=== PATIENT | female | born 1950 | race Caucasian/White ===

== ENCOUNTER 2018-04-26 13:15 | Inpatient (IN) | payer MEDICARE ==
[2018-04-26 13:33] LABS: #Basophils 0.2 thou/uL (0.0-0.2); #Lymphocytes 0.8 thou/uL (1.20-3.40); #Monocytes 0.6 thou/uL (0.11-0.59); #Neutrophils 10.9 thou/uL (1.40-6.50); %Basophils 1.2 % (0.0-1.0); %Eosinophils 0.2 % (0.0-10.0); %Monocytes 4.8 % (0.0-10.0); %Neutrophils 87.7 % (42.0-75.0); Hemoglobin 13.5 g/dL (12.0-16.0); Mean Corpuscular HGB CONC 32.4 g/dL (32.0-36.0); Mean Corpuscular Hemoglobin 33.6 pg (27.0-31.0); Mean Platelet Volume 9.2 fL (7.4-10.4); Platelet Count 293 thou/uL (130-400); RBC Distribution Width 12.7 % (11.5-14.5); Red Blood Cell (RBC) Count 4.02 mill/uL (4.20-5.40); White Blood Cell (WBC) Count 12.4 thou/uL (4.8-10.8)
[2018-04-26 13:53] LABS: ALT (SGPT) 13 U/L (8-55); AST (SGOT) 21 U/L (5-34); Albumin 3.2 g/dL (3.4-4.8); Alkaline Phosphatase 93 U/L (40-150); Anion Gap 23 mmol/L (10-20); BUN (Urea Nitrogen) 21 mg/dL (9.8-20.1); Bilirubin, Total 1.3 mg/dL (0.2-1.2); CK (CPK) 240 U/L (29-168); Calc. Creatinine Clearance 0 mL/min (70-130); Calcium 10.1 mg/dL (7.8-10.44); Carbon Dioxide 19 mmol/L (23-31); Chloride 102 mmol/L (98-107); Estimated GFR-MDRD 70; Globulin 2.6 g/dL (2.4-3.5); Glucose 125 mg/dL (80-115); Lipase 17 U/L (8-78); Potassium 4.7 mmol/L (3.5-5.1); Protein, Total 5.8 g/dL (6.0-8.3); Sodium 139 mmol/L (136-145)
--- NOTE | 2018-04-26 14:00 | CT ---
CT BRAIN NONCONTRAST: DATE: 04/26/2018. TIME: 1:31 p.m. HISTORY: A 68-year-old female with altered mental status, right upper extremity and right lower extremity weak ness, fixed gaze, and right facial droop (acute stroke). Dr. Mendieta verbally gave this report by telephone to Dr. Lawler of the emergency department at 1:34 p.m. 04/26/2018. COMPARISON: 04/18/2013. FINDINGS: There is a new finding of a moderately large region of cytotoxic edema with associated effacement of sulcal markings, involving the left insula, external capsule, and suprasylvian left frontal lobe, fro m periventricular white matter to the lateral peripheral cortical surface. Currently, there is no mi dline shift. No obstructive hydrocephalus. No acute intraaxial or extraaxial hemorrhage. IMPRESSION: Acute moderately large infarction in the left middle cerebral artery territory. CODE CR JN R POS: [facility]
[2018-04-26 14:12] LABS: CKMB 3.9 ng/mL (0-6.6)
[2018-04-26 14:16] LABS: Bilirubin Large (Negative); Blood, Urine Negative (Negative); Clarity CLEAR (Clear); Glucose, Urine (Dipstick) Negative (Negative); Leukocyte Small (Negative); Nitrite Negative (Negative); Protein, Urine (Dipstick) 30 mg/dL (Neg-Trace); Specific Gravity, Urine 1.031 (1.002-1.036)
[2018-04-26 14:18] LABS: Bacteria/HPF None Seen HPF (None Seen); Squamous Epithelial 0-3 HPF (0-3)
[2018-04-26 14:21] LABS: Acetaminophen Less than 6.0 mcg/mL (10.0-30.0); Alcohol Less than 10 mg/dL (Less than 10); Salicylate Less than 8.0 mg/dL (15.0-30.0)
--- NOTE | 2018-04-26 14:21 | RAD ---
SINGLE VIEW OF THE CHEST: COMPARISON: 05/03/2011. HISTORY: Stroke-like symptoms. Altered mental status. FINDINGS: A single view of the chest shows a normal size cardiomediastinal silhouette. The MediPort is unchang ed in position. There is a moderate right pleural effusion with adjacent atelectasis. A small left pleural effusion is seen. Increased interstitial lung markings are present. IMPRESSION: Bilateral pleural effusions. POS: [facility]
[2018-04-26 14:27] LABS: Pathc Cast-AUWi Flag 2.58 (0-2.49)
[2018-04-26 14:29] LABS: Amphetamine Not Detected (NotDetected); Barbiturates Screen Not Detected (NotDetected); Benzodiazepine Screen Not Detected (NotDetected); Cocaine Metabolite Screen Not Detected (NotDetected); Medtox Control Line Valid? VALID (VALID); Medtox Reader # READER 1; Methadone Not Detected (NotDetected); Methamphetamine Not Detected (NotDetected); Opiate Screen Not Detected (NotDetected); Oxycodone Screen Not Detected (NotDetected); Phencyclidine (PCP) Not Detected (NotDetected); THC/Cannabinoid Screen Not Detected (NotDetected); Tricyclic Screen Not Detected (NotDetected)
[2018-04-26 14:36] LABS: RBC/HPF 0-3 HPF (0-3)
[2018-04-26 14:37] LABS: Hyaline Casts/LPF 0-3 HYALINE CAST LPF (0-3 Hyaline)
[2018-04-26] MEDS ORDERED: Aspirin 300 MG Suppository ONE (14:48)
[2018-04-26] MEDS ORDERED: hydrALAZINE 20 MG/ML VIAL SLOW IVP PRN (19:54)
[2018-04-26] MEDS ORDERED: D5 0.9% NS w/ 20 mEq KCl 1,000 ML IV SCH (19:54)
[2018-04-26] MEDS ORDERED: Acetaminophen 325 MG TAB PO PRN (19:54)
--- NOTE | 2018-04-26 22:29 | HP ---
PRIMARY CARE PHYSICIAN: Unknown. CHIEF COMPLAINT: Found down at home. HISTORY OF PRESENT ILLNESS: Ms. Castellanos is a 68-year-old female, who has a history of laryngeal cancer. She also has a history of hypertension. She was in her usual state of health until what is known to be about 9:00 a.m. yesterday. The son typically will call her daily to check on her and yesterday, he called her and she said that she had fallen earlier in the week and she think that she may have had a stroke, but did not seek any medical attention for it. He then called today and no one answered. Then, they went to check on her and found her down at home and she was brought to the emergency room. She was noted to have right-sided weakness. CT scan of the brain was done, which showed a relatively large left MCA territory stroke and she is being admitted for further evaluation and treatment. Currently, there is no family at the bedside and therefore, no additional information is obtainable. The patient is essentially aphasic and unable to give me any history as well. Therefore, this is the extent of the history of present illness that is obtainable. REVIEW OF SYSTEMS: Also unobtainable due to the patient being aphasic. PAST MEDICAL HISTORY: The past medical history is taken from the emergency room records as well as previous history and physical in August 10, 2012, by Dr. Vallecillo and this includes hypertension, alcohol abuse, and laryngeal cancer. PAST SURGICAL HISTORY: She has had appendectomy, tonsillectomy, and PEG tube. ALLERGIES: TO PENICILLIN. FAMILY HISTORY: Unknown. SOCIAL HISTORY: Unknown and unobtainable. MEDICATIONS: Medications are taken from the emergency room records and includes: 1. Amlodipine 5 mg. 2. Zofran 8 mg. 3. Cyclobenzaprine. PHYSICAL EXAMINATION: GENERAL: She is alert. Cannot assess orientation. She appears to be a bit confused. She is cachectic in appearance and a little bit disheveled. VITAL SIGNS: Blood pressure was 109/74, heart rate 111, respiratory rate of 16, and temperature 98.5. HEENT: Her pupils, the left pupil is slightly smaller than the right. It appears as if her extraocular muscles are intact. However, she does not follow commands. Throat, she has dry mucous membranes. She has some temporal wasting. NECK: There is no adenopathy. No bruits. LUNGS: Clear to auscultation. There is no wheezing. No rales. No rhonchi. CARDIOVASCULAR: She has normal S1 and S2. However, her heart rate is irregular. She did have a grade 2/6 systolic murmur. ABDOMEN: Soft. It is nontender and nondistended. Positive for bowel sounds. No rebound or guarding. EXTREMITIES: She has 1 to 2+ pitting edema bilaterally. The right is greater than the left. NEUROLOGICAL: She has what appears to be a flaccid paralysis of the right upper extremity. She is able to withdraw the pain on the right lower extremity and her reflexes are actually symmetric, 2+ in both the upper and lower extremities, maybe slightly hyperreflexic in the right upper extremity. SKIN AND INTEGUMENT: The skin is essentially dry and she has some leathery skin changes on the right neck. DIAGNOSTIC DATA: On her EKG by my reading, she is in atrial fibrillation. Heart rate is around 110. On her chest x-ray, she has increased pulmonary vascular markings bilaterally. Heart size is normal and there is no effusion. LABORATORY DATA: White blood cell count is 12.4, hemoglobin is 13.5, hematocrit is 41.6, and platelet count is 293. Sodium 139, potassium 4.7, chloride is 102, CO2 is 19, BUN of 21, creatinine 0.82, glucose is 125, total bilirubin is 1.3. Urinalysis is essentially negative. Urine drug screen is negative. ASSESSMENT: This is a pleasant 68-year-old female, who presents to the emergency room with a large left MCA distribution cerebrovascular accident. She is noted to be in atrial fibrillation on the EKG. This is likely the cause of the stroke. She likely suffered an embolic stroke. She will be admitted to the Stroke Unit. We will start her on aspirin rectally. Get speech therapy, as well as PT and OT. Order an echocardiogram and consult Neurology. Also consult Cardiology with regard to the atrial fibrillation. We will need to see when it is safe to start anticoagulation. We will also need to have discussions with the family with regard to code status, whether or not they would want an alternate means of feeding and basically how far to go with regard to her workup and overall management. We will allow permissive hypertension during these first [address] her initially on some IV fluids. Job ID: [id number]
[2018-04-26] MEDS ORDERED: Ondansetron PF 4 MG/2 ML Vial IVP PRN (23:20)
[2018-04-26] MEDS ORDERED: Ondansetron ODT 4 MG TAB SL PRN (23:20)
[2018-04-27] MEDS: Famotidine/PF 20 mg/2ml Vial SLOW IVP SCH ×3 (01:20→20:47)
[2018-04-27 03:05] VITALS: BMI 17.5
[2018-04-27] MEDS: Dextrose 5 %-0.45 % NaCl 1,000 ML IV SCH ×2 (03:50→11:24)
[2018-04-27] MEDS ORDERED: Dextrose 5 %-0.45 % NaCl 1,000 ML IV SCH (05:45)
[2018-04-27] MEDS ORDERED: Prevnar 13-Val Conj/PF 0.5 ML SYRINGE IM ONE (09:00)
[2018-04-27] MEDS: Enoxaparin Sodium 40 MG/0.4 ML SYRINGE SC SCH (09:57)
[2018-04-27] MEDS: Aspirin 300 MG Suppository PR SCH (09:58)
[2018-04-27 11:22] LABS: Mean Corpuscular Hemoglobin 33.4 pg (27.0-31.0); Mean Platelet Volume 9.3 fL (7.4-10.4); Platelet Count 220 thou/uL (130-400); RBC Distribution Width 12.9 % (11.5-14.5); White Blood Cell (WBC) Count 12.5 thou/uL (4.8-10.8)
[2018-04-27 11:39] LABS: Cardiac Risk 4.2 (Less than 4.5)
[2018-04-27 11:41] LABS: ALT (SGPT) 13 U/L (8-55); AST (SGOT) 33 U/L (5-34); Albumin 2.8 g/dL (3.4-4.8); Alkaline Phosphatase 85 U/L (40-150); Anion Gap 18 mmol/L (10-20); BUN (Urea Nitrogen) 16 mg/dL (9.8-20.1); Bilirubin, Total 1.2 mg/dL (0.2-1.2); Calc. Creatinine Clearance 56 mL/min (70-130); Calcium 9.5 mg/dL (7.8-10.44); Carbon Dioxide 18 mmol/L (23-31); Chloride 107 mmol/L (98-107); Estimated GFR-MDRD 82; Globulin 2.6 g/dL (2.4-3.5); Glucose 118 mg/dL (80-115); Potassium 3.9 mmol/L (3.5-5.1); Protein, Total 5.4 g/dL (6.0-8.3); Sodium 139 mmol/L (136-145)
[2018-04-27 11:46] LABS: Magnesium 0.8 mg/dL (1.6-2.6)
[2018-04-27 11:49] LABS: Band 3 % (5-11); Eosinophils 1 % (0-10); Lymphocytes 1 % (21-51); MDiff Complete? YES; Macrocytosis SLIGHT = 6-15 cells (100X) (0-5/hpf); Neutrophil 94 % (42-75); Platelet Morphology Comment Appears Adequate
[2018-04-27] MEDS ORDERED: Magnesium 2 GM/50 ML 2 GM in Premix Bag 1 BAG IVPB SCH (12:30)
--- NOTE | 2018-04-27 15:44 | MRI ---
MRI BRAIN NONCONTRAST: INDICATIONS: CVA. COMPARISON: Head CT from 04/26/2018 is referenced. FINDINGS: There is large volume restricted diffusion involving the anterior and posterior divisions of the left MCA territory, compatible with recent infarction. There is a punctate right parietal lobe infarctio n, and there are small areas of restricted diffusion localizing to the left occipital lobe, in the pe riatrial white matter of the posterior right cerebral hemisphere. No evidence of parenchymal hemorrh age. There is chronic ischemic disease of the cerebral white matter. The degree of patient motion o bscures detail, limiting evaluation of the skull base flow voids. IMPRESSION: Large, recent left middle cerebral artery territorial infarction. There are superimposed multifocal bilateral small areas of infarction, which may be on the basis of a watershed distribution, either re lated to embolic phenomenon or hypoperfusion. POS: [facility]
[2018-04-27] MEDS ORDERED: ISOVUE-370 76%-LOCM 1 ML ONE (16:32)
--- NOTE | 2018-04-27 16:53 | PDOC.PN ---
- Subjective Encounter Start Date: 04/27/18 Encounter Start Time: 15:15 Ms. Castellanos was seen today in follow-up. she is aphasic. She does not respond to me, her eyes are open, but she does not track me in the room - Objective MAR Reviewed: Yes Vital Signs & Weight: Vital Signs (12 hours) Temp Pulse Pulse Pulse Resp BP BP 04/27/18 15:00 97.3 F L 96 16 04/27/18 11:00 97.3 F L 110 H 16 04/27/18 09:25 101 H 106 H 106/63 110/75 04/27/18 09:20 101 H 106 H 106/63 110/75 04/27/18 08:10 04/27/18 07:00 97.4 F L 104 H 12 BP Pulse Ox 04/27/18 15:00 101/65 99 04/27/18 11:00 105/62 99 04/27/18 09:25 04/27/18 09:20 04/27/18 08:10 96 04/27/18 07:00 98/50 L 96 Weight Weight 102 lb 1.6 oz Result Diagrams: 04/27/18 10:54 04/27/18 10:54 Phys Exam - Physical Examination HEENT: PERRLA Respiratory: no wheezing, no rales, no rhonchi, clear to auscultation bilateral Cardiovascular: RRR, no significant murmur, no rub Gastrointestinal: soft, non-tender, no distention, positive bowel sounds Musculoskeletal: no edema Dx/Plan (1) Acute CVA (cerebrovascular accident) Code(s): I63.9 - CEREBRAL INFARCTION, UNSPECIFIED Status: Acute (2) Atrial fibrillation Code(s): I48.91 - UNSPECIFIED ATRIAL FIBRILLATION Status: Acute - Plan * Acute Left MCA CVA- with dysphagia/ aphasia and right sided weakness- discussed with the patient's brother in the phine. They are not interested in PEG tube placement * They are considering Hospice, but will need to have further conversations with other family members * HTN- blood pressure is controlled * AFIB- will defer management depending on family input .
--- NOTE | 2018-04-27 18:24 | CT ---
CT HEAD NONCONTRAST: CTA [place] OF [place] WITH CONTRAST WITH 3D VOLUME RENDERING: CTA NECK WITH CONTRAST WITH 3D VOLUME RENDERING: INDICATIONS: Cerebrovascular accident. Altered mental status. Right-sided weakness. FINDINGS: Incidental note of large volume bilateral pleural fluid with adjacent pulmonary parenchymal consolida tion, incompletely assessed. The imaged aortic arch is patent with mild calcification. Great vessel origins that emanate from the aortic arch are grossly patent. No high-grade stenosis of the right s ubclavian artery. There is abnormal truncation of the left subclavian artery at its proximal to mid aspect with visualized collateral vasculature traversing to the left upper chest and neck. There is a dominant left vertebral artery. Each vertebral artery is grossly patent. The basilar artery is pa tent. No significant stenosis of the bilateral common carotid or cervical internal carotid arteries. There is mild narrowing at the level of the right carotid bulb and as light focal narrowing at the junction of the left common carotid artery and cervical left ICA. There is abnormal lack of contrast of the left M1 segment and subsequent thereafter, indicating occlusion, proximally, within the left M1, correlating to recent brain MRI findings. No high-grade stenosis or occlusion of the right MCA o r involving either visualized LUIS E. Noncontrast head CT reveals large volume subacute infarction of the left MCA territory. There are ad ditional scattered small foci of hypoattenuation notably at the right basal ganglia. No hemorrhage i s seen within the brain parenchyma. There are areas of heterogeneity within the visualized aerodigestive tract, which may relate to inspi ssated secretions. Air density is seen within the right internal jugular vein, which likely relates to a recent injection. IMPRESSION: 1. Left middle cerebral artery occlusion. 2. Left subclavian artery occlusion. 3. Large volume, incompletely assessed bilateral pleural effusions with associated parenchymal conso lidation of each lung. POS: [facility]
--- NOTE | 2018-04-27 18:31 | CON ---
DATE OF CONSULTATION: CHIEF COMPLAINT: Acute stroke. HISTORY OF PRESENT ILLNESS: The patient's [id number] was present at bedside and she gave us medical history. This consultation was performed through telemedicine. The patient usually talks to her brother every day. She did not contact her brother at 11:00 a.m. on the day of admission and he called her and the phone was busy. He could not get hold of her. Within an hour or less, [id number] went there, she was not answering the door and she had to get herself in somehow and she found her in a recliner, her eyes were open, but she was not responsive and she was moving her left fingers. She fell a week ago and has not been talking. She last talked to her brother at 9:00 a.m. on Friday. The patient is a very private person. There is no previous medical history of a stroke. PAST MEDICAL HISTORY: Positive for hypertension and throat cancer approximately 10 years ago. SOCIAL HISTORY: The patient lives on her own and used to be a drinker, but not recently. She quit smoking since her throat cancers. FAMILY HISTORY: There is history of strokes in the family, more so on her mother's side. ALLERGIES: SHE IS ALLERGIC TO PENICILLIN. PREVIOUS SURGICAL HISTORY: Appendectomy, tonsillectomy, and PEG tube placement. MEDICATIONS: At home, 1. Amlodipine 5 mg per day. 2. Zofran. 3. Cyclobenzaprine. REVIEW OF SYSTEMS: Difficult to obtain due to severe aphasia for the patient. LABORATORY WORKUP: White count 12.5, hemoglobin 14, hematocrit 45.3, platelets are 220. Sodium 139, potassium 3.9, chloride 107, BUN 16, creatinine 0.71, glucose 118, AST 33, ALT 13, total bilirubin 1.2, magnesium 0.8, calcium 9.5, protein 5.4, albumin 2.8, globulin 2.6, albumin to globulin ratio 1.1, triglycerides 161, cholesterol 137, LDL 72, HDL 33. Heart disease risk ratio 4.2, TSH 4.9. I requested an MRI of the brain and it was performed today and it shows a large recent left middle cerebral artery territorial infarction. There are superimposed multifocal bilateral small areas of infarction, which may be on the basis of watershed distribution and either related to embolic phenomenon or hypoperfusion. Echocardiogram is pending. PHYSICAL EXAMINATION: VITAL SIGNS: Temperature is 97.3, pulse 110, and blood pressure 110/75. GENERAL APPEARANCE: Her eyes are open. She is looking preferential gaze to the left side and she spontaneously moves her left side, but does not follow commands. CHEST: Clear vesicular breathing. CARDIOVASCULAR: S1 and S2 heard. No murmurs. ABDOMEN: Soft. NEUROLOGIC: She has diffuse right hemineglect, completely aphasic, just looks around the room. Preferential gaze to the left. Cranial nerves, pupils are reactive bilaterally. Facial droop on the right side. Unable to assess extraocular movements since the patient does not follow any commands, and tongue seems to be midline. The patient does not open her mouth properly to visualize the posterior pharyngeal area. Motor examination, tone decreased on the right side. She is unable to follow any commands, but has some spontaneous movement of the left side of the body and 0/5 strength on the right side. Deep tendon reflexes are 2+. Cerebellar and sensory, unable to assess. IMPRESSION: The patient is a 68-year-old woman with known history of hypertension and throat cancer. It is unclear whether she is on anti-platelet agents at home. She has not had a prior CVA per family. She was found on her recliner and was brought to the hospital. It is unclear what time this event occurred due to lack of specific timing of the event and presence of ischemic area on the CT, it looks like no tPA was given. At this time, the patient has dense right hemiparesis with hemineglect on the right side and has spontaneous movement on the left side. Clinical history and diagnosis are most consistent with acute CVA in the left MCA distribution. TREATMENT RECOMMENDATIONS: Please complete her stroke workup including echocardiogram. I will also request CT angio of the head and neck to make sure we complete her stroke workup and understand her vasculature and I will agree with aspirin for stroke prophylaxis. I will see her again tomorrow. Job ID: [id number]
[2018-04-28] MEDS ORDERED: Digoxin 0.5 MG/2 ML AMP SLOW IVP SCH (01:00)
[2018-04-28] MEDS ORDERED: Diltiazem HCl 125 MG, Admixture Fee 1 EACH in Sodium Chloride 0.9% 100 ML IVPB SCH (03:00)
[2018-04-28] MEDS: Dextrose 5 %-0.45 % NaCl 1,000 ML IV SCH ×3 (03:18→18:57)
[2018-04-28] MEDS: Famotidine/PF 20 mg/2ml Vial SLOW IVP SCH ×2 (08:46→20:38)
[2018-04-28] MEDS: Aspirin 300 MG Suppository PR SCH (08:46)
[2018-04-28] MEDS: Enoxaparin Sodium 40 MG/0.4 ML SYRINGE SC SCH (08:46)
--- NOTE | 2018-04-28 14:08 | PRG ---
DATE OF SERVICE: 04/28/2018 CHIEF COMPLAINT: Acute CVA. INTERVAL HISTORY: I reviewed her chart and patient is planned for hospice, [id number] was walking into the room as we left the room. I informed her about the CT angio report. Current report, CT angio showed left middle cerebral artery occlusion. There is mild narrowing at the level of right carotid bulb and light focal narrowing at the junction of the left common carotid and cervical left ICA and there is abnormal lack of contrast of the left M1 segment and subsequent thereafter. No occlusion of right MCA was noted. She has a large volume subacute infarction of the left MCA territory. The patient has declined since yesterday and she is less awake. LABORATORY FINDINGS: Her lab report today, white count 12.5, hemoglobin 14, hematocrit 45.3, platelets 220. Chemistry; sodium 139, potassium 3.9, chloride 107, BUN 16, creatinine 0.71, glucose 118, cholesterol 137, LDL 72, HDL 33, triglycerides 161, TSH 4.9. PHYSICAL EXAMINATION: VITAL SIGNS: Temperature 98.4, blood pressure 160/75, pulse is 87. GENERAL APPEARANCE: Thin built lady, who is somnolent and she is not very responsive today and cannot follow any commands, there is still a mild spontaneous motor exam. Very little movement of the left side and right side of the body. IMPRESSION: The patient is a 68-year-old lady with a large left middle cerebral artery infarct. She is more obtunded, likely secondary to intracerebral edema. She is planned for hospice today. TREATMENT RECOMMENDATIONS: I agree with plans for hospice. Please call Neurology if you have any further questions. Job ID: [id number] MTDD
--- NOTE | 2018-04-28 14:36 | PDOC.PN ---
- Subjective Encounter Start Date: 04/28/18 Encounter Start Time: 13:35 Ms. Castellanos was seen today in follow-up of Acute CVA. her eyes are open, but she does not follow commands, or respond. - Objective MAR Reviewed: Yes Vital Signs & Weight: Vital Signs (12 hours) Temp Pulse Pulse Pulse Resp BP BP 04/28/18 11:34 98.4 F 61 20 04/28/18 11:17 04/28/18 09:04 87 93 161/76 H 160/75 H 04/28/18 08:40 04/28/18 07:43 97.5 F L 102 H 20 04/28/18 04:00 97.9 F 125 H 19 BP Pulse Ox 04/28/18 11:34 114/52 L 96 04/28/18 11:17 93 L 04/28/18 09:04 04/28/18 08:40 93 L 04/28/18 07:43 126/69 90 L 04/28/18 04:00 132/77 94 L Weight Weight 102 lb 6.4 oz I&O: 04/27/18 04/28/18 04/29/18 06:59 06:59 06:59 Intake Total 2439 Output Total 625 Balance 1814 Result Diagrams: 04/27/18 10:54 04/27/18 10:54 Phys Exam - Physical Examination HEENT: PERRLA Respiratory: no wheezing, no rales + upper airway rattling Cardiovascular: no significant murmur, no rub, irregular Gastrointestinal: soft, non-tender, no distention, positive bowel sounds Musculoskeletal: no edema Dx/Plan (1) Acute CVA (cerebrovascular accident) Code(s): I63.9 - CEREBRAL INFARCTION, UNSPECIFIED Status: Acute (2) Atrial fibrillation Code(s): I48.91 - UNSPECIFIED ATRIAL FIBRILLATION Status: Acute - Plan * Acute CVA- patient has been left with severe deficit, including right sided weakness, and aphasia and dysphagia * Her family has decided on Hospice .
[2018-04-28 15:38] VITALS: TEMP 97.5
[2018-04-28 20:02] VITALS: BP 144/77
--- NOTE | 2018-04-29 03:05 | DIS ---
DATE OF ADMISSION: 04/26/2018 DATE OF DISCHARGE: 04/28/2018 DISCHARGE DISPOSITION: Inpatient hospice. DISCHARGE DIAGNOSES: 1. Large left MCA distribution cerebrovascular accident. 2. Atrial fibrillation. 3. Hypertension. 4. History of alcohol abuse. 5. Laryngeal cancer. DISCHARGE MEDICATIONS: None. PROCEDURES DONE DURING THE ADMISSION: The patient had a CT scan of the brain, which demonstrated a large right MCA distribution CVA. MRI demonstrated the same with some areas of superimposed multifocal areas of infarction bilaterally, which could indicate watershed distribution ischemia. The patient had a CT angiogram of the [place], showing left middle cerebral artery occlusion, left subclavian artery occlusion, large volume incompletely assessed bilateral pleural effusions with associated parenchymal consolidation of each lungs. CODE STATUS: DNR. ALLERGIES: TO PENICILLIN AND STRAWBERRY. HOSPITAL COURSE: Ms. Castellanos is a pleasant 68-year-old female, who was found down at home by her brother. He had last checked on her day prior to admission. At that time, she had mentioned that she had a fall and she thinks she may have suffered a stroke, but she never sought medical attention. When he came to check on her the following day, she was found down and was brought into the hospital, where she was found to have a large MCA distribution cerebrovascular accident. Unfortunately, this left her with right-sided paralysis as well as dysphagia and aphasia. Her family had made the decision not to place a PEG tube in the patient and knew that this was not one of her wishes and as such, they made decision to place her in inpatient hospice and this was done on 04/28/2018. Job ID: [id number]
== END 2018-04-28 21:14 | disposition hospice, inpatient (51) | DRG 66 ==
LOC: ERS 13:15 → ERHOLD 14:34 → 2SE 22:48
PROVIDERS: ADMIT Internal Medicine; ATTEND Internal Medicine
DX: I63.9 Cerebral infarction, unspecified (principal); I10 Essential (primary) hypertension; C14.0 Malignant neoplasm of pharynx, unspecified; I48.91 Unspecified atrial fibrillation
CPT/HCPCS: 36415; 36416; 70450; 70496; 70498; 70551; 71045; 80053; 80061; 80306; 80307; 81003; 81015; 82140; 82550; 82553; 83690; 83735; 83880; 84146; 84443; 84484; 85007; 85025; 85027; 87040; 87086; 93005; A4353; J1160; J1650; J3475; J7050; Q9966; S0028